=== PATIENT | female | born 1960 | race Caucasian/White ===

== ENCOUNTER 2016-12-30 09:39 | Emergency (ER) | payer OTHER ==
--- NOTE | 2016-12-30 09:54 | EDM.PDOC ---
ED HPI GENERAL MEDICAL PROBLEM - General Chief Complaint: Lower Extremity Injury/Pain Stated Complaint: LEFT ANKLE PAIN Time Seen by Provider: 12/30/16 09:54 Source of Information: Reports: Patient - History of Present Illness INITIAL COMMENTS - FREE TEXT/NARRATIVE: HISTORY AND PHYSICAL: History of present illness: [] Patient was stepping out of her truck and rolled her ankle unable to bear weight due to pain and plans of 8/10 pain with weightbearing zero 1/10 pain at rest No fever nausea vomiting chills sweats Previous fracture with ORIF left ankle Review of systems: As per history of present illness and below otherwise all systems reviewed and negative. Past medical history: As per history of present illness and as reviewed below otherwise noncontributory. Surgical history: As per history of present illness and as reviewed below otherwise noncontributory. Social history: No reported history of drug or alcohol abuse. Family history: As per history of present illness and as reviewed below otherwise noncontributory. Physical exam: HEENT: Atraumatic, normocephalic, pupils reactive, negative for conjunctival pallor or scleral icterus, mucous membranes moist, throat clear, neck supple, nontender, trachea midline. Lungs: Clear to auscultation, breath sounds equal bilaterally, chest nontender. Heart: S1S2, regular, negative for clicks, rubs, or JVD. Abdomen: Soft, nondistended, nontender. Negative for masses or hepatosplenomegaly. Negative for costovertebral tenderness. Pelvis: Stable nontender. Genitourinary: Deferred. Rectal: Deferred. Extremities: Atraumatic, negative for cords or calf pain. Neurovascular unremarkable. Left lower extremity unaffected above the ankle moderate swelling over the lateral malleolus unable to bear weight due to pain no bruising no open lesion entirely neurovascularly intact Neuro: Awake, alert, oriented. Cranial nerves II through XII unremarkable. Cerebellum unremarkable. Motor and sensory unremarkable throughout. Exam nonfocal. Diagnostics: [] Ankle 3 views Therapeutics: [] Gel splint Crutches/nonweightbearing Rest ice ibuprofen Impression: [] Left Ankle sprain Definitive disposition and diagnosis as appropriate pending reevaluation and review of above. Left Ankle Pain Score (Numeric/FACES): 8 - Related Data Allergies Allergy/AdvReac Type Severity Reaction Status Date / Time hydrocortisone Allergy Other Verified 12/30/16 09:57 ibuprofen Allergy Other Verified 12/30/16 09:57 Penicillins Allergy Other Verified 12/30/16 09:57 Home Meds: Home Meds Insulin Aspart [Novolog] 100 unit SQ 12/30/16 [History] Insulin Detemir [Levemir] 34 unit SUBCUT DAILY 12/30/16 [History] Review of Systems - Review of Systems Review Of Systems: ROS reveals no pertinent complaints other than HPI. Trauma Exam - Physical Exam Exam: See Below Course - Vital Signs Last Recorded V/S: Last Vital Signs Temp 36.8 C 12/30/16 09:54 Pulse 78 12/30/16 09:54 Resp 16 12/30/16 09:54 BP 154/78 H 12/30/16 09:54 Pulse Ox 99 12/30/16 09:54 Departure - Departure Time of Disposition: 10:26 Disposition: Home, Self-Care 01 Condition: good Clinical Impression: Ankle sprain - Discharge Information Forms: ED Department Discharge Additional Instructions: Gel splint Crutches nonweightbearing Rest Ice 20 minute intervals 3 times daily 7-10 days Ibuprofen 400 mg 3 times daily 7-10 days Follow up with orthopedic clinic in 2 weeks [facility] [address], [address] [place] [address] my orthopedic The following information is given to patients seen in the emergency department who are being discharged to home. This information is to outline your options for follow-up care. We provide all patients seen in our emergency department with a follow-up referral. The need for follow-up, as well as the timing and circumstances, are variable depending upon the specifics of your emergency department visit. If you don't have a primary care physician on staff, we will provide you with a referral. We always advise you to contact your personal physician following an emergency department visit to inform them of the circumstance of the visit and for follow-up with them and/or the need for any referrals to a consulting specialist. The emergency department will also refer you to a specialist when appropriate. This referral assures that you have the opportunity for follow-up care with a specialist. All of these measure are taken in an effort to provide you with optimal care, which includes your follow-up. Under all circumstances we always encourage you to contact your private physician who remains a resource for coordinating your care. When calling for follow-up care, please make the office aware that this follow-up is from your recent emergency room visit. If for any reason you are refused follow-up, please contact the [facility] emergency department at and asked to speak to the emergency department charge nurse.
[2016-12-30 09:57] VITALS: BP 154/78
--- NOTE | 2016-12-30 10:25 | CR ---
EXAMINATION: Left ankle HISTORY: Pain COMPARISON: None TECHNIQUE: 3 views FINDINGS: There is moderate soft tissue swelling overlying the lateral malleolus with underlying sc rew and plate hardware fixating the distal fibula. No definite fracture or acute osseous abnormality is demonstrated. A single screw fixates the medial malleolus. A small ossific density projects krista g the anterior aspect of the tibial plafond, likely an old injury. Joint spaces are otherwise preser nazanin. IMPRESSION: Moderate soft tissue swelling overlying the lateral malleolus without acute osseous abnormality genny ntified.
== END 2016-12-30 10:33 | disposition home or self-care (01) ==
LOC: MW.ED 09:39
DX: S93.402A Sprain of unspecified ligament of left ankle, initial encounter (principal); Z88.0 Allergy status to penicillin; Z88.8 Allergy status to other drugs, medicaments and biological substances; Z79.4 Long term (current) use of insulin; W01.0XXA Fall on same level from slipping, tripping and stumbling without subsequent striking against object, initial encounter
CPT/HCPCS: 73610-26-LT; 73610-LT; 99282; 99283